=== PATIENT | female | born 1990 | race Caucasian/White ===

== ENCOUNTER 2016-10-27 16:57 | Emergency (ER) | payer OTHER ==
--- NOTE | 2016-10-27 17:41 | ED CLINICAL REPORT ---
Clinical Report - Physicians/Mid Levels [facility] [address] [place] [address] 10/27/2016 16:59 Patient: HELEN CHAPPELL Time Seen: 17:26; initial patient contact, initial documentation, patient care assumed. Arrived- By private vehicle. Historian- patient. HISTORY OF PRESENT ILLNESS Chief Complaint: EARACHE. This started yesterday and is now gone. Modifying factors- worsened by swallowing. Not relieved by anything. Location- right ear. The pain is described as mild. The patient has had ear pain. No ear drainage, complaint of foreign body in the ear, ear trauma or recent barotrauma. She has had nasal congestion and a nasal discharge and sore throat. (states yesterday her face was red and peeling, her eyes were red and watery like she had been crying, her throat hurts and hurts to swallow, and when she swallows the pain shoots into her R ear). Similar symptoms previously: None. Recent medical care: Not recently seen/assessed. REVIEW OF SYSTEMS No fever, cough, difficulty breathing or headache. She has had mild eye discomfort involving the right eye and left eye with red eye. red itchy eyes, rash on face. All systems otherwise negative, except as recorded above. PAST HISTORY Negative. See nurses notes. ADDITIONAL SURGERIES: . --17:14 Keily Christianson. SOCIAL HISTORY Never smoker. Not exposed to second-hand smoke at home. No alcohol use or drug use. No recent travel. Is a local resident. FAMILY HISTORY Negative. ADDITIONAL NOTES The nursing notes have been reviewed with agreement regarding the chief complaint, HPI, ROS, PMH and patient medications and allergies. PHYSICAL EXAM Vital Signs: 10/27/2016 17:15 BP: 115/62. HR: 77. RR: 17. O2 saturation: 100%. Temp: 98.7 F. Have been reviewed as normal and appear to be correct. Appearance: Alert. No acute distress. Eyes: Eyes normal inspection. Throat: Pharynx normal. Nose: Nose normal. Ear (right): Right ear normal. Right tympanic membrane normal. Ear (left): Left ear normal. Left tympanic membrane normal. Neck: Normal inspection. Neck supple. Respiratory: No respiratory distress. Back: Normal inspection. Skin: Skin warm and dry. Normal skin color. No rash. Normal skin turgor. Extremities: Extremities exhibit normal ROM. No lower extremity edema. Neuro: Oriented X 3. No motor deficit. No sensory deficit. PROGRESS AND PROCEDURES Course of Care: tv on super loud, child on phone/tablet with movie, other family member talking on phone, another kid jumping around room, difficult to assess pt and hear what she was saying. Patient counseled in person regarding the patient's stable condition and diagnosis. Differential Diagnosis: Other possible considerations: aoe, aom, pharyngitis, sinusitis, conjunctivitis, flu, allergies. Above considerations are based on history and physical exam. Differential diagnosis was discussed with patient. Disposition: Discharged home in good and unchanged condition (17:40). Condition: good and stable. CLINICAL IMPRESSION Acute seasonal allergic rhinitis. INSTRUCTIONS Warnings: GENERAL WARNINGS: Return or contact your physician immediately if your condition worsens or changes unexpectedly, if not improving as expected, or if other problems arise. Specifically return if problem worsens. Prescription Medications: Chantelle 180 mg tablets: take 1 orally daily as needed for allergies, congestion or itching. Dispense twenty (20). No refills. Follow-up: Follow up with your doctor in about three days as needed. Call for an appointment. Summary of care provided to patient. Understanding of the discharge instructions verbalized by patient. (Electronically signed by Carla Ashby A.R.N.P. 10/27/2016 18:09)
--- NOTE | 2016-10-27 17:41 | ED NURSING NOTES ---
Clinical Report - Nurses [facility] [address] [place] [address] 10/27/2016 16:59 [id number] TRI[facility] Triage time 17:12 Oct 27 2016. Acuity: LEVEL 5. Chief Complaint: RIGHT EAR PAIN. 17:15 10/27/16. Alert. No acute distress. SEPSIS SCREEN: Sepsis Screen. Negative (no infection suspected/documented). RAMESH COMA SCORE: [place] Coma Scale: 15- eyes open spontaneously (4); best verbal response- oriented x 4 (5); best motor response- obeys commands (6). --17:15 Keily Christianson 17:15 10/27/16. BP: 115/62. HR: 77. RR: 17. O2 saturation: 100%. Temp: 98.7 F. Pain level now 10/10. --17:15 Keily Christianson. Weight: 56.6 kg stated. Height/Length: 62 inches Per Patient. BMI: 22.8. --17:15 Keily Christianson. Medications None. --17:14 Keily Christianson. Medication/allergy information source: the patient. --17:15 Keily Christianson. Allergies None. --17:14 Keily Christianson. History Arrived by private vehicle. Historian: patient. Accompanied by family. Primary physician ([facility]). This started yesterday. ( Pt reports pain and itching in her right ear. Also reports itchy red eyes and stinging rash on face.). She has had a nasal discharge and a sore throat. No fever, ear drainage, sinus pain or headache. Treatment COST ESTIMATING CLERK: None. PAST MEDICAL HX: Immunizations: up-to-date. SOCIAL HX: Never smoker. No alcohol use or drug use. FALL RISK ASSESSMENT: Fall risk assessment completed. No fall risk identified. NUTRITIONAL RISK ASSESSMENT: The nutritional risk assessment revealed no deficiencies. FUNCTIONAL ASSESSMENT: Functional assessment: no impairments noted. LEARNING NEEDS ASSESSMENT: The learning needs assessment revealed no barriers. SKIN INTEGRITY ASSESSMENT: Skin integrity risk assessment completed. No skin integrity risk identified. --17:15 Keily Christianson. ADDITIONAL SURGERIES: . --17:14 Keily Christianson. Assessment The patient states feels the same. --17:15 Keily Christianson. Interventions ID band on patient. --17:15 Keily Christianson. PHYSICAL ASSESSMENT 17:16 10/27/16. Ambulatory to room. GENERAL / NEURO / PSYCH: Alert. Appears in no acute distress. HEENT: No facial asymmetry noted. Pupils equal, round and reactive to light. RESPIRATORY: Respirations not labored. CVS: Capillary refill less than 2 seconds. SKIN: Skin is warm and dry. --17:16 Keily Christianson. NURSING PROGRESS NOTES 17:16 10/27/16. The plan of care for this patient has been created. Head of bed elevated. Reassurance given. Two patient identifiers checked. Call light placed in reach. Side rails up x 1. Bed placed in lowest position. Brakes of bed on. Patient ready for evaluation- chart flagged and ED physician and QUARTER FOLDER notified. --17:16 Keily Christianson 17:17 10/27/16. ( Pt is ). --17:17 Keily Christianson. DISPOSITION / DISCHARGE 17:53 10/27/16. Departure time: 17:53 Oct 27 2016. Condition at departure: unchanged. The goals identified in the patient's plan of care were met. No learning barriers present. Discharge instructions provided and reviewed with the patient. Reviewed warnings (Patient verbalized awareness of warning s/sx listed in dc paperwork.). Reviewed medication(s) side effects, precautions, dosing and course information. Prescription(s) given to the patient (Chantelle). Treatments reviewed. Reviewed referral to a primary care physician for followup. Patient verbalized understanding. Written instructions provided in Swedish. The patient was discharged by the nurse practitioner. She was discharged home and accompanied by family. She left the Emergency Department ambulatory and via private vehicle. Family member driving. FALL RISK ASSESSMENT: Fall risk assessment completed. No fall risk identified. --17:53 Keily Christianson 17:52 10/27/16. BP: deferred. HR: deferred. RR: deferred. O2 saturation: deferred. Temp: deferred. Pain level now deferred. --17:53 Keily Christianson. Locked/Released at 10/27/2016 18:21 by Keiyl Christianson,
--- NOTE | 2016-10-27 17:41 | ED NURSING NOTES ---
Clinical Report - Nurses [facility] [address] [place] [address] 10/27/2016 16:59 [id number] Triage time 17:12 Oct 27 2016. Acuity: LEVEL 5. Chief Complaint: RIGHT EAR PAIN. 17:15 10/27/16. Alert. No acute distress. SEPSIS SCREEN: Sepsis Screen. Negative (no infection suspected/documented). RAMESH COMA SCORE: [place] Coma Scale: 15- eyes open spontaneously (4); best verbal response- oriented x 4 (5); best motor response- obeys commands (6). --17:15 Keily Christianson 17:15 10/27/16. BP: 115/62. HR: 77. RR: 17. O2 saturation: 100%. Temp: 98.7 F. Pain level now 10/10. --17:15 Keily Christianson. Weight: 56.6 kg stated. Height/Length: 62 inches Per Patient. BMI: 22.8. --17:15 Keily Christianson. Medications None. --17:14 Keily Christianson. Medication/allergy information source: the patient. --17:15 Keily Christianson. Allergies None. --17:14 Keily Christianson. History Arrived by private vehicle. Historian: patient. Accompanied by family. Primary physician ([facility]). This started yesterday. ( Pt reports pain and itching in her right ear. Also reports itchy red eyes and stinging rash on face.). She has had a nasal discharge and a sore throat. No fever, ear drainage, sinus pain or headache. Treatment PLANNER CHIEF: None. PAST MEDICAL HX: Immunizations: up-to-date. SOCIAL HX: Never smoker. No alcohol use or drug use. FALL RISK ASSESSMENT: Fall risk assessment completed. No fall risk identified. NUTRITIONAL RISK ASSESSMENT: The nutritional risk assessment revealed no deficiencies. FUNCTIONAL ASSESSMENT: Functional assessment: no impairments noted. LEARNING NEEDS ASSESSMENT: The learning needs assessment revealed no barriers. SKIN INTEGRITY ASSESSMENT: Skin integrity risk assessment completed. No skin integrity risk identified. --17:15 Keily Christianson. ADDITIONAL SURGERIES: . --17:14 Keily Christianson. Assessment The patient states feels the same. --17:15 Keily Christianson. Interventions ID band on patient. --17:15 Keily Christianson. PHYSICAL ASSESSMENT 17:16 10/27/16. Ambulatory to room. GENERAL / NEURO / PSYCH: Alert. Appears in no acute distress. HEENT: No facial asymmetry noted. Pupils equal, round and reactive to light. RESPIRATORY: Respirations not labored. CVS: Capillary refill less than 2 seconds. SKIN: Skin is warm and dry. --17:16 Keily Christianson. NURSING PROGRESS NOTES 17:16 10/27/16. The plan of care for this patient has been created. Head of bed elevated. Reassurance given. Two patient identifiers checked. Call light placed in reach. Side rails up x 1. Bed placed in lowest position. Brakes of bed on. Patient ready for evaluation- chart flagged and ED physician and COMMERCIAL FISHER notified. --17:16 Keily Christianson 17:17 10/27/16. ( Pt is ). --17:17 Keily Christianson. DISPOSITION / DISCHARGE 17:53 10/27/16. Departure time: 17:53 Oct 27 2016. Condition at departure: unchanged. The goals identified in the patient's plan of care were met. No learning barriers present. Discharge instructions provided and reviewed with the patient. Reviewed warnings (Patient verbalized awareness of warning s/sx listed in dc paperwork.). Reviewed medication(s) side effects, precautions, dosing and course information. Prescription(s) given to the patient (Chantelle). Treatments reviewed. Reviewed referral to a primary care physician for followup. Patient verbalized understanding. Written instructions provided in Estonian. The patient was discharged by the nurse practitioner. She was discharged home and accompanied by family. She left the Emergency Department ambulatory and via private vehicle. Family member driving. FALL RISK ASSESSMENT: Fall risk assessment completed. No fall risk identified. --17:53 Keily Christianson 17:52 10/27/16. BP: deferred. HR: deferred. RR: deferred. O2 saturation: deferred. Temp: deferred. Pain level now deferred. --17:53 Keily Christianson. Locked/Released at 10/27/2016 18:21 by Keily Christianson,
--- NOTE | 2016-10-27 18:21 | ED DISCHARGE INSTRUCTIONS ---
Patient: HELEN CHAPPELL General Instructions [facility] VisitID: [id number] [place] [address] 26y, F Registration Date/Time: 10/27/2016 Acute seasonal allergic rhinitis. INSTRUCTIONS Warnings: GENERAL WARNINGS: Return or contact your physician immediately if your condition worsens or changes unexpectedly, if not improving as expected, or if other problems arise. Specifically return if problem worsens. Prescription Medications: Chantelle 180 mg tablets: take 1 orally daily as needed for allergies, congestion or itching. Dispense twenty (20). No refills. Follow-up: Follow up with your doctor in about three days as needed. Call for an appointment. Summary of care provided to patient. Understanding of the discharge instructions verbalized by patient. ADDITIONAL INFORMATION Nasal Allergy Nasal Allergy, also called Allergic Rhinitis occurs after exposure to pollen, molds, mildew, animal dander (scales from animal skin, hair and feathers), dust, smoke and fumes. (These are called allergens). When pollen causes a nasal allergy it is commonly called Hay Fever. When these particles contact the lining of the nose, eyes, eyelids, sinuses or throat, they cause the cells to release a chemical called histamine. Histamine may cause a watery discharge from the eyes or nose. It may also cause violent sneezing, nasal congestion, itching of the eyes, nose, throat and mouth. Prevention: Nasal allergy cannot be cured but symptoms can be reduced. Avoid or reduce exposure to the allergen when possible, by the following measures: POLLEN Stay indoors on hot windy days during pollen season Keep windows and doors closed Use an air conditioner with an electrostatic filter DUST, MOLD & MILDEW Follow these measures, especially in the bedroom: When cleaning use vacuum information services consultant, oiled mops and damp cloths; dont stir up the dust. Once a week clean the oneil, woodwork and floors with a damp mop and vacuum carpets. Once a year clean the bed frame and springs (do this outside). Cover the box springs with plastic. Do not use mattress pads. Remove stuffed chairs and rugs from the bedroom. Discard old moldy books, furniture and bedding. Use synthetic fabrics for furniture, curtains and bedding. Avoid quilts, comforters, and stuffed toys. ANIMAL DANDER Remove all indoor pets (except fish and reptiles). Avoid all contact with furry animals. Avoid down-stuffed pillows and coats. Some persons are also sensitive to wool and should avoid it. OTHER IRRITANTS Do not smoke and avoid the smoke of others. Some persons are sensitive to cosmetic powder, baby powder and powdered laundry detergents. Therefore, these powders should be avoided. Home Care: DECONGESTANT pills and sprays (Sudafed, NeoSynephrine, Afrin), reduce tissue swelling and watery discharge. Overuse of nasal decongestant sprays may make symptoms worse. Do not use these more often than recommended. ANTIHISTAMINES block the release of histamine during the allergic response. Antihistamines are more effective when taken BEFORE symptoms develop. Unless a prescription antihistamine was prescribed, you may take CLARITIN (loratadine). (Claritin is an axvs-exf-rxnwxkx antihistamine that does not cause drowsiness.) STEROID nasal sprays (Beconase, Vancenase, Nasalide) or oral steroids (Prednisone) may also be prescribed for more severe symptoms. These help to reduce the local inflammation which adds to the allergic response. If you have ASTHMA, pollen season may make your asthma symptoms worse. It is important that you use your asthma medicines as directed during this time to prevent or treat attacks. Some persons with asthma have a worsening of their asthma symptoms when taking antihistamines. If you notice this, stop the antihistamines and notify your doctor. Follow Up with your doctor or as directed by our staff if your symptoms are not improving with the treatment advised. Get Prompt Medical Attention if any of the following occur: Facial or sinus pain or colored drainage from the nose Severe headache or ear pain Fever of 100.4F (38C) or higher, or as directed by your healthcare provider Wheezing or trouble breathing (If you already know you have asthma, return if your asthma symptoms do not respond to the usual doses of your medicine) Cough with lots of colored sputum (mucus) Seasonal Allergy Seasonal Allergy is also called Hay Fever. It may occur after a person is exposed to pollens released from grasses, weeds, trees and shrubs. This type of allergy occurs during the spring and summer when the pollen contacts the lining of the nose, eyes, eyelids, sinuses and throat. This causes discharge from the eyes or nose. Violent sneezing, nasal congestion, post-nasal drip, itching of the eyes, nose, throat and mouth, scratchy throat, and dry cough may also occur. Home Care: Seasonal allergy cannot be cured, but symptoms can be reduced by these measures: Avoid or reduce exposure to the allergen as much as you can: Stay indoors on hot windy days of pollen season. Keep windows and doors closed. Use an air conditioner with an electrostatic filter. DECONGESTANT pills and sprays (Sudafed, NeoSynephrine, Afrin) reduce tissue swelling and watery discharge. If you use the sprays too much, the symptoms may get worse. Do not use these more often than recommended. Do not use decongestants in children unless advised by your doctor. ANTIHISTAMINES block the release of histamine during the allergic response. They work better when taken BEFORE symptoms develop. Unless a prescription antihistamine was prescribed, you may take Claritin (loratadine). This is an rcpg-mpw-vdtcchm non-sedating antihistamine. It does not make you drowsy. STEROID nasal sprays (Beconase, Vancenase, Nasalide) or oral steroids (Prednisone) may also be prescribed. These help to reduce the local inflammation that adds to the allergic response. If you have ASTHMA, pollen season may make your asthma symptoms worse. It is important that you use your asthma medicines as directed during this time to prevent or treat attacks. Some persons with ASTHMA have asthma symptoms that get worse when they take ANTIHISTAMINES. This is due to the drying effect on the lungs. If you notice this, stop the antihistamines, drink extra fluids and notify your doctor. If you have sinus congestion or drainage, a saline nasal rinse may give relief. A saline nasal rinse lessens the swelling and clears excess mucus. This allows sinuses to drain. Prepackaged kits are sold at most drug stores. These contain pre-mixed salt packets and an irrigation device. Follow Up with your doctor or as directed by our staff if your symptoms do not improve with the treatment advised. Get Prompt Medical Attention if any of the following occur: Facial, ear or sinus pain; colored drainage from the nose Severe headache Fever of 100.4F (38C) or higher, or as directed by your healthcare provider Wheezing or trouble breathing (If you know you have asthma, return if your asthma symptoms do not respond to the usual doses of your medicine) Cough with lots of colored sputum (mucus) Fexofenadine Hydrochloride Oral tablet What is this medicine? FEXOFENADINE (fex oh STEVO a khloe) is an antihistamine. This medicine is used to treat or prevent symptoms of allergies. It is also used to help reduce itchy skin rash and hives. How should I use this medicine? Take this medicine by mouth with a full glass of water. Follow the directions on the prescription label. You may take this medicine with food or on an empty stomach. Take your medicine at regular intervals. Do not take it more often than directed. You may need to take this medicine for several days before your symptoms improve. Talk to your supervisor in charge regarding the use of this medicine in children. While this drug may be prescribed for children as young as 6 years old for selected conditions, precautions do apply. What side effects may I notice from receiving this medicine? Side effects that you should report to your doctor or health career technical counselor as soon as possible: allergic reactions like skin rash, itching or hives, swelling of the face, lips, or tongue breathing problems chest pain fast heartbeat infection or fever Side effects that usually do not require medical attention (report to your doctor or health career technical counselor if they continue or are bothersome): cough drowsiness dry or irritated nose, mouth, or throat headache menstrual changes pain stomach upset, nausea What may interact with this medicine? antacids erythromycin grapefruit, apple, or orange juice ketoconazole magnesium-containing products What if I miss a dose? If you miss a dose, take it as soon as you can. If it is almost time for your next dose, take only that dose. Do not take double or extra doses. Where should I keep my medicine? Keep out of the reach of children. Store at room temperature between 20 and 25 degrees C (68 and 77degrees F). Protect from moisture. Throw away any unused medicine after the expiration date. What should I tell my health care provider before I take this medicine? They need to know if you have any of these conditions: kidney disease an unusual or allergic reaction to fexofenadine, terfenadine, other medicines, foods, dyes, or preservatives or trying to get breast-feeding What should I watch for while using this medicine? Visit your doctor or health career technical counselor for regular checks on your health. Tell your doctor or healthcare professional if your symptoms do not start to get better or if they get worse. You have been given the following additional information: Allergic Rhinitis Seasonal Allergy Fexofenadine Hydrochloride Oral tablet (Electronically signed by Carla Ashby A.R.N.P. 10/27/2016 18:09)
--- NOTE | 2016-10-27 18:21 | ED MED RECONCILIATION SUMMARY ---
Patient: EHLEN CHAPPELL Medication Reconciliation Report [facility] VisitID: [id number] [address] [place] [address] 26y, F Registration Date/Time: 10/27/2016 Weight: 56.6 kg Height/Length: 62 in. BMI: 22.8 ALLERGIES: None The patient's Home Medications are listed below: NONE. The source(s) of the original Home Medication information: patient The following Medications were given to the patient in the Emergency Department: None. The following Medications were prescribed to the patient: Chantelle 180 mg tablets: take 1 orally daily as needed for allergies, congestion or itching. Dispense twenty (20). No refills. -- Carla Ashby A.R.N.P.
--- NOTE | 2016-10-27 18:21 | ED MAR SUMMARY ---
..... Medication Administration Record [facility] [address] [place], [place] [id number] Patient: HELEN CHAPPELL Visit ID: [id number] 26y, F Weight: 56.6 kg Height/Length: 62 in BMI: 22.8 ALLERGIES: None
--- NOTE | 2016-10-27 18:21 | ED DISCHARGE INSTRUCTIONS ---
Patient: HELEN CHAPPELL General Instructions [facility] VisitID: [id number] [place] [address] 26y, F Registration Date/Time: 10/27/2016 Acute seasonal allergic rhinitis. INSTRUCTIONS Warnings: GENERAL WARNINGS: Return or contact your physician immediately if your condition worsens or changes unexpectedly, if not improving as expected, or if other problems arise. Specifically return if problem worsens. Prescription Medications: Chantelle 180 mg tablets: take 1 orally daily as needed for allergies, congestion or itching. Dispense twenty (20). No refills. Follow-up: Follow up with your doctor in about three days as needed. Call for an appointment. Summary of care provided to patient. Understanding of the discharge instructions verbalized by patient. ADDITIONAL INFORMATION Nasal Allergy Nasal Allergy, also called Allergic Rhinitis occurs after exposure to pollen, molds, mildew, animal dander (scales from animal skin, hair and feathers), dust, smoke and fumes. (These are called allergens). When pollen causes a nasal allergy it is commonly called Hay Fever. When these particles contact the lining of the nose, eyes, eyelids, sinuses or throat, they cause the cells to release a chemical called histamine. Histamine may cause a watery discharge from the eyes or nose. It may also cause violent sneezing, nasal congestion, itching of the eyes, nose, throat and mouth. Prevention: Nasal allergy cannot be cured but symptoms can be reduced. Avoid or reduce exposure to the allergen when possible, by the following measures: POLLEN Stay indoors on hot windy days during pollen season Keep windows and doors closed Use an air conditioner with an electrostatic filter DUST, MOLD & MILDEW Follow these measures, especially in the bedroom: When cleaning use vacuum fishing accessories maker, oiled mops and damp cloths; dont stir up the dust. Once a week clean the oneil, woodwork and floors with a damp mop and vacuum carpets. Once a year clean the bed frame and springs (do this outside). Cover the box springs with plastic. Do not use mattress pads. Remove stuffed chairs and rugs from the bedroom. Discard old moldy books, furniture and bedding. Use synthetic fabrics for furniture, curtains and bedding. Avoid quilts, comforters, and stuffed toys. ANIMAL DANDER Remove all indoor pets (except fish and reptiles). Avoid all contact with furry animals. Avoid down-stuffed pillows and coats. Some persons are also sensitive to wool and should avoid it. OTHER IRRITANTS Do not smoke and avoid the smoke of others. Some persons are sensitive to cosmetic powder, baby powder and powdered laundry detergents. Therefore, these powders should be avoided. Home Care: DECONGESTANT pills and sprays (Sudafed, NeoSynephrine, Afrin), reduce tissue swelling and watery discharge. Overuse of nasal decongestant sprays may make symptoms worse. Do not use these more often than recommended. ANTIHISTAMINES block the release of histamine during the allergic response. Antihistamines are more effective when taken BEFORE symptoms develop. Unless a prescription antihistamine was prescribed, you may take CLARITIN (loratadine). (Claritin is an lkji-tli-dfxjcth antihistamine that does not cause drowsiness.) STEROID nasal sprays (Beconase, Vancenase, Nasalide) or oral steroids (Prednisone) may also be prescribed for more severe symptoms. These help to reduce the local inflammation which adds to the allergic response. If you have ASTHMA, pollen season may make your asthma symptoms worse. It is important that you use your asthma medicines as directed during this time to prevent or treat attacks. Some persons with asthma have a worsening of their asthma symptoms when taking antihistamines. If you notice this, stop the antihistamines and notify your doctor. Follow Up with your doctor or as directed by our staff if your symptoms are not improving with the treatment advised. Get Prompt Medical Attention if any of the following occur: Facial or sinus pain or colored drainage from the nose Severe headache or ear pain Fever of 100.4F (38C) or higher, or as directed by your healthcare provider Wheezing or trouble breathing (If you already know you have asthma, return if your asthma symptoms do not respond to the usual doses of your medicine) Cough with lots of colored sputum (mucus) Seasonal Allergy Seasonal Allergy is also called Hay Fever. It may occur after a person is exposed to pollens released from grasses, weeds, trees and shrubs. This type of allergy occurs during the spring and summer when the pollen contacts the lining of the nose, eyes, eyelids, sinuses and throat. This causes discharge from the eyes or nose. Violent sneezing, nasal congestion, post-nasal drip, itching of the eyes, nose, throat and mouth, scratchy throat, and dry cough may also occur. Home Care: Seasonal allergy cannot be cured, but symptoms can be reduced by these measures: Avoid or reduce exposure to the allergen as much as you can: Stay indoors on hot windy days of pollen season. Keep windows and doors closed. Use an air conditioner with an electrostatic filter. DECONGESTANT pills and sprays (Sudafed, NeoSynephrine, Afrin) reduce tissue swelling and watery discharge. If you use the sprays too much, the symptoms may get worse. Do not use these more often than recommended. Do not use decongestants in children unless advised by your doctor. ANTIHISTAMINES block the release of histamine during the allergic response. They work better when taken BEFORE symptoms develop. Unless a prescription antihistamine was prescribed, you may take Claritin (loratadine). This is an itlo-wta-jghprdw non-sedating antihistamine. It does not make you drowsy. STEROID nasal sprays (Beconase, Vancenase, Nasalide) or oral steroids (Prednisone) may also be prescribed. These help to reduce the local inflammation that adds to the allergic response. If you have ASTHMA, pollen season may make your asthma symptoms worse. It is important that you use your asthma medicines as directed during this time to prevent or treat attacks. Some persons with ASTHMA have asthma symptoms that get worse when they take ANTIHISTAMINES. This is due to the drying effect on the lungs. If you notice this, stop the antihistamines, drink extra fluids and notify your doctor. If you have sinus congestion or drainage, a saline nasal rinse may give relief. A saline nasal rinse lessens the swelling and clears excess mucus. This allows sinuses to drain. Prepackaged kits are sold at most drug stores. These contain pre-mixed salt packets and an irrigation device. Follow Up with your doctor or as directed by our staff if your symptoms do not improve with the treatment advised. Get Prompt Medical Attention if any of the following occur: Facial, ear or sinus pain; colored drainage from the nose Severe headache Fever of 100.4F (38C) or higher, or as directed by your healthcare provider Wheezing or trouble breathing (If you know you have asthma, return if your asthma symptoms do not respond to the usual doses of your medicine) Cough with lots of colored sputum (mucus) Fexofenadine Hydrochloride Oral tablet What is this medicine? FEXOFENADINE (fex oh STEVO a khloe) is an antihistamine. This medicine is used to treat or prevent symptoms of allergies. It is also used to help reduce itchy skin rash and hives. How should I use this medicine? Take this medicine by mouth with a full glass of water. Follow the directions on the prescription label. You may take this medicine with food or on an empty stomach. Take your medicine at regular intervals. Do not take it more often than directed. You may need to take this medicine for several days before your symptoms improve. Talk to your key account executive regarding the use of this medicine in children. While this drug may be prescribed for children as young as 6 years old for selected conditions, precautions do apply. What side effects may I notice from receiving this medicine? Side effects that you should report to your doctor or health career and transition teacher as soon as possible: allergic reactions like skin rash, itching or hives, swelling of the face, lips, or tongue breathing problems chest pain fast heartbeat infection or fever Side effects that usually do not require medical attention (report to your doctor or health career and transition teacher if they continue or are bothersome): cough drowsiness dry or irritated nose, mouth, or throat headache menstrual changes pain stomach upset, nausea What may interact with this medicine? antacids erythromycin grapefruit, apple, or orange juice ketoconazole magnesium-containing products What if I miss a dose? If you miss a dose, take it as soon as you can. If it is almost time for your next dose, take only that dose. Do not take double or extra doses. Where should I keep my medicine? Keep out of the reach of children. Store at room temperature between 20 and 25 degrees C (68 and 77degrees F). Protect from moisture. Throw away any unused medicine after the expiration date. What should I tell my health care provider before I take this medicine? They need to know if you have any of these conditions: kidney disease an unusual or allergic reaction to fexofenadine, terfenadine, other medicines, foods, dyes, or preservatives or trying to get breast-feeding What should I watch for while using this medicine? Visit your doctor or health career and transition teacher for regular checks on your health. Tell your doctor or healthcare professional if your symptoms do not start to get better or if they get worse. You have been given the following additional information: Allergic Rhinitis Seasonal Allergy Fexofenadine Hydrochloride Oral tablet (Electronically signed by Carla Ashby A.R.N.P. 10/27/2016 18:09)
--- NOTE | 2016-10-27 18:21 | ED MAR SUMMARY ---
..... Medication Administration Record [facility] [address] [place], [place] [id number] Patient: HELEN CHAPPELL Visit ID: [id number] 26y, F Weight: 56.6 kg Height/Length: 62 in BMI: 22.8 ALLERGIES: None
--- NOTE | 2016-10-27 18:21 | ED MED RECONCILIATION SUMMARY ---
Patient: HELEN CHAPPELL Medication Reconciliation Report [facility] VisitID: [id number] [address] [place] [address] 26y, F Registration Date/Time: 10/27/2016 Weight: 56.6 kg Height/Length: 62 in. BMI: 22.8 ALLERGIES: None The patient's Home Medications are listed below: NONE. The source(s) of the original Home Medication information: patient The following Medications were given to the patient in the Emergency Department: None. The following Medications were prescribed to the patient: Chantelle 180 mg tablets: take 1 orally daily as needed for allergies, congestion or itching. Dispense twenty (20). No refills. -- Carla Ashby A.R.N.P.
== END 2016-10-27 17:53 | disposition home or self-care (01) ==
LOC: ED SRH 16:57
DX: J30.2 Other seasonal allergic rhinitis (principal)

== ENCOUNTER 2016-11-09 13:34 | Emergency (ER) | payer OTHER ==
--- NOTE | 2016-11-09 15:49 | ED ORDER SUMMARY ---
..... Patient: HELEN CHAPPELL OrderSheet [facility] VisitID: [id number] [place] [address] 26y, F Registration Date/Time: 11/09/2016 ORDER SHEET Weight: 55.7 kg (stated) Allergies: None GENERAL ORDERS: EKG - ER Stat (14:04 11/09/2016 HBivens A.R.N.P.) (Ack 14:06 LNations ER Tech1) (14:12 KPage-Kuchan R.N.) Visual Acuity (14:06 11/09/2016 HBivens A.R.N.P.) (Ack 14:38 LAbe R.N.) (15:10 LAbe R.N.) MEDICATION ORDERS: Proparacaine Eye Drops (Solution 0.5 %) 2 drops (both eyes) (14:57 11/09/2016 HBivens A.R.N.P.) (Ack 14:57 LAbe R.N.) (15:10 LAbe R.N.) IV FLUIDS: ORDER SHEET NOTES: [Electronically signed by Carla Ashby.R.N.PPooja (17:11 11/09/2016)] [Electronically signed by Suzette Mckenzie R.N. (19:13 11/09/2016)] [Electronically locked/signed by Suzette Mckenzie R.N. (19:13 11/09/2016)]
--- NOTE | 2016-11-09 15:49 | ED NURSING NOTES ---
Clinical Report - Nurses [facility] [address] [place] [address] 11/09/2016 13:36 [id number] Triage time 13:43. Acuity: LEVEL 4. Chief Complaint: REDNESS and PAIN TO RIGHT EYE. REDNESS and PAIN TO LEFT EYE. Alert. No acute distress. --13:52 Suzette Mckenzie R.N. 13:43 11/09/16. BP: 105/68. HR: 84. RR: 18. O2 saturation: 99%. Temp: 98.4 F. Pain level now 02/28. --13:52 Suzette Mckenzie R.N. VISUAL ACUITY: Visual acuity performed without corrective lenses: left eye 20/70; right eye 20/50; both eyes 20/30. --15:09 Suzette Mckenzie R.N. Weight: 55.7 kg stated. Height/Length: 62 inches Per Patient. BMI: 22.5. --13:52 Suzette Mckenzie R.N. Medications Fexofenadine HCl Oral. --13:49 Suzette Mckenzie R.N. Allergies None. --13:49 Suzette Mckenzie R.N. History Arrived by private vehicle. Historian: patient. Accompanied by family. Primary physician ([facility]). Onset. (2 weeks). She did not sustain an injury. ( seasonal allergies, seen here before for same and not getting relief. Now states has chest pressure off and on since 2013). 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 PAST MEDICAL HX: The patient does not wear contact lenses. Immunizations: up-to-date. Last normal menstrual period- October 15. SOCIAL HX: Never smoker. No alcohol use or drug use. No infectious disease exposure. ABUSE ASSESSMENT: No report of abuse. SELF HARM ASSESSMENT: A self harm assessment was performed. The patient answered "no" to the question "Do you have thoughts of harming or killing yourself?" and "Are you here because you tried to hurt yourself?". FALL RISK ASSESSMENT: Fall risk assessment completed. No fall risk identified. NUTRITIONAL RISK ASSESSMENT: The nutritional risk assessment revealed no deficiencies. FUNCTIONAL ASSESSMENT: Functional assessment: no impairments noted. LEARNING NEEDS ASSESSMENT: The learning needs assessment revealed no barriers. SKIN INTEGRITY ASSESSMENT: Skin integrity risk assessment completed. No skin integrity risk identified. --13:52 Suzette Mckenzie R.N. PROBLEMS: Allergic Rhinitis. --13:50 Suzette Mckenzie R.N. Interventions ID band on patient. To treatment room. --13:52 Suzette Mckenzie R.N. PHYSICAL ASSESSMENT Ambulatory to room. HEENT: Conjunctival findings present: redness of the right conjunctiva and redness of the left conjunctiva. --13:52 Suzette Mckenzie R.N. NURSING PROGRESS NOTES Head of bed elevated. Two patient identifiers checked. Call light placed in reach. Side rails up x 1. Bed placed in lowest position. Brakes of bed on. ED physician notified. --13:53 Suzette Mckenzie R.N. ( EKG 1412). --14:13 Abril Meraz R.N. Cardiac rhythm: (SR). --14:13 Abril Meraz R.N. 15:10 11/09/2016 Proparacaine Eye Drops 2 drop given. Given in both eyes. Allergies verified and confirmed 5 rights. --15:10 Suzette Mckenzie R.N. 15:17. Reassessment after medication administered. She reports no complaints and she is calm. Overall patient status is improved- she states feels better. GENERAL / NEURO / PSYCH: Oriented X 4. RESPIRATORY: No respiratory distress. SKIN: Skin color within normal limits. Skin is warm and dry. --15:38 Suzette Mckenzie R.N. 15:17 11/09/16. BP: 107/59. HR: 69. RR: 18. O2 saturation: 97%. Temp: 98.2 F. --15:38 Suzette Mckenzie R.N. DISPOSITION / DISCHARGE 15:30. Departure time: 1530. Condition at departure: improved. No learning barriers present. Discharge instructions provided and reviewed with the patient. Patient verbalized understanding. Written instructions provided in Moroccan. The patient was discharged home. She left the Emergency Department ambulatory and via private vehicle. Parent driving. --15:40 Suzette Mckenzie R.N. Locked/Released at 11/09/2016 19:13 by Suzette Mckenzie R.N.
--- NOTE | 2016-11-09 15:49 | ED CLINICAL REPORT ---
Clinical Report - Physicians/Mid Levels [facility] [address] [place] [address] 11/09/2016 13:36 Patient: HELEN CHAPPELL Time Seen: 1353; initial patient contact, initial documentation, patient care assumed. Arrived- By private vehicle. Historian- patient. HISTORY OF PRESENT ILLNESS Chief Complaint: EYE REDNESS and IRRITATION. This started about 2 weeks ago, involves the right and left eye, is characterized as moderate in severity and has been constant and is still present. The patient did not sustain an injury. Not injured from contact lenses. Eye redness and itching. ( watery). Similar symptoms previously: Seen in the ED. Evaluation/treatment: medication prescribed. ( txed here on 10/27 for eye irritation, rx beau, no f/u and no better). REVIEW OF SYSTEMS The patient complains of moderate, squeezing central chest pain (for 3 years, wants that checked too), currently mild. All systems otherwise negative, except as recorded above. PAST HISTORY See nurses notes. PROBLEMS: Allergic Rhinitis. --13:50 Suzette Mckenzie R.N. No history of prior eye injury. She does not wear contact lenses. SOCIAL HISTORY Never smoker. No alcohol use or drug use. FAMILY HISTORY No significant family medical history. ADDITIONAL NOTES The nursing notes have been reviewed with agreement regarding the chief complaint, HPI, ROS, PMH and patient medications and allergies. PHYSICAL EXAM Vital Signs: 11/09/2016 13:43 BP: 105/68. HR: 84. RR: 18. O2 saturation: 99%. Temp: 98.4 F. Have been reviewed as normal and appear to be correct. Appearance: Alert. Oriented X3. No acute distress. HEENT: Ears normal. Nose normal. Pharynx normal. Head appears normal to external inspection. Eyes: Visual acuity noted- see nurse's notes. Eyelids appear normal to inspection. Conjunctivae and sclerae do not appear normal to inspection. Corneas appear normal to inspection. Pupils equal, round and reactive to light. Accommodation normal. Funduscopic exam normal. Visual abreu normal. EOMs intact. Periorbital areas appear normal to inspection. Anterior chambers clear. Anterior chambers of normal depth. B sclera mild erythema and tearing present, pt rubbing her eyes during entire visit. Rt Eye: Right eye exam normal. Lt Eye: Left eye exam normal. Neck: Neck supple. Normal inspection. CVS: Normal heart rate and rhythm. Heart sounds normal. Respiratory: No respiratory distress. Breath sounds normal. Skin: No rash. Extremities: Extremities negative. Neuro: Oriented X 3. Mood/affect normal. No motor deficit. No sensory deficit. LABS, X-RAYS, AND EKG EKG: EKG time: (1411). No acute process. No acute ischemia. Normal EKG. Rate: 76. Normal. The study has been interpreted contemporaneously by me (and Dr Glasgow). The EKG appears to be a good tracing. Interpretation time: 2. PROGRESS AND PROCEDURES Patient counseled in person regarding the patient's stable condition, test results and diagnosis. Differential Diagnosis: Other possible considerations: conjunctivitis, fb, corneal abrasion. Above considerations are based on history, physical exam, reassessment and EKG. Differential diagnosis was discussed with patient. Disposition: Condition: good and stable. CLINICAL IMPRESSION Acute conjunctivitis of the right eye and left eye. Chest pain characterized as "discomfort" .12 lead EKG performed. INSTRUCTIONS Warnings: GENERAL WARNINGS: Return or contact your physician immediately if your condition worsens or changes unexpectedly, if not improving as expected, or if other problems arise. Specifically return if problem worsens. Prescription Medications: Patanol Ophthalmic Solution 0.1% : Instill 1-2 drops into affected eye 2 times daily 6 to 8 hours apart as needed for itching. Dispense five (5) mL. No refills. Substitution is permissible. Understanding of the discharge instructions verbalized by patient. Follow-up with: Nisa Wisdom MD, Ophthalmology, [facility], [address] [place] [address] - [address] [address]; Bogdan Rowland MD, Ophthalmology, , [facility], [address] [place] [address]; Tani Shanks MD, Ophthalmology, , [address], [facility] [address]; Bogdan Gonzalez MD, Ophthalmology, , [address], [place], [address]; Mik Omer MD, Ophthalmology, , [address], [place], [address]; Julien Jennings MD, Ophthalmology, , [address], , [place], [address]; Linsey King MD, Ophthalmology, , [address], [place] [id number]; Bogdan Gusman MD, Ophthalmology, , [facility], [address] [place] [address] Follow up tomorrow even if well. Call for an appointment. Summary of care provided to patient. (Electronically signed by Carla Ashby A.R.N.P. 11/09/2016 17:11)
--- NOTE | 2016-11-09 15:49 | ED NURSING NOTES ---
Clinical Report - Nurses [facility] [address] [place] [address] 11/09/2016 13:36 [id number] TRI[facility] Triage time 13:43. Acuity: LEVEL 4. Chief Complaint: REDNESS and PAIN TO RIGHT EYE. REDNESS and PAIN TO LEFT EYE. Alert. No acute distress. --13:52 Suzette Mckenzie R.N. 13:43 11/09/16. BP: 105/68. HR: 84. RR: 18. O2 saturation: 99%. Temp: 98.4 F. Pain level now 02/28. --13:52 Suzette Mckenzie R.N. VISUAL ACUITY: Visual acuity performed without corrective lenses: left eye 20/70; right eye 20/50; both eyes 20/30. --15:09 Suzette Mckenzie R.N. Weight: 55.7 kg stated. Height/Length: 62 inches Per Patient. BMI: 22.5. --13:52 Suzette Mckenzie R.N. Medications Fexofenadine HCl Oral. --13:49 Suzette Mckenzie R.N. Allergies None. --13:49 Suzette Mckenzie R.N. History Arrived by private vehicle. Historian: patient. Accompanied by family. Primary physician ([facility]). Onset. (2 weeks). She did not sustain an injury. ( seasonal allergies, seen here before for same and not getting relief. Now states has chest pressure off and on since 2013). 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 PAST MEDICAL HX: The patient does not wear contact lenses. Immunizations: up-to-date. Last normal menstrual period- October 15. SOCIAL HX: Never smoker. No alcohol use or drug use. No infectious disease exposure. ABUSE ASSESSMENT: No report of abuse. SELF HARM ASSESSMENT: A self harm assessment was performed. The patient answered "no" to the question "Do you have thoughts of harming or killing yourself?" and "Are you here because you tried to hurt yourself?". FALL RISK ASSESSMENT: Fall risk assessment completed. No fall risk identified. NUTRITIONAL RISK ASSESSMENT: The nutritional risk assessment revealed no deficiencies. FUNCTIONAL ASSESSMENT: Functional assessment: no impairments noted. LEARNING NEEDS ASSESSMENT: The learning needs assessment revealed no barriers. SKIN INTEGRITY ASSESSMENT: Skin integrity risk assessment completed. No skin integrity risk identified. --13:52 Suzette Mckenzie R.N. PROBLEMS: Allergic Rhinitis. --13:50 Suzette Mckenzie R.N. Interventions ID band on patient. To treatment room. --13:52 Suzette Mckenzie R.N. PHYSICAL ASSESSMENT Ambulatory to room. HEENT: Conjunctival findings present: redness of the right conjunctiva and redness of the left conjunctiva. --13:52 Suzette Mckenzie R.N. NURSING PROGRESS NOTES Head of bed elevated. Two patient identifiers checked. Call light placed in reach. Side rails up x 1. Bed placed in lowest position. Brakes of bed on. ED physician notified. --13:53 Suzette Mckenzie R.N. ( EKG 1412). --14:13 Abril Meraz R.N. Cardiac rhythm: (SR). --14:13 Abril Meraz R.N. 15:10 11/09/2016 Proparacaine Eye Drops 2 drop given. Given in both eyes. Allergies verified and confirmed 5 rights. --15:10 Suzette Mckenzie R.N. 15:17. Reassessment after medication administered. She reports no complaints and she is calm. Overall patient status is improved- she states feels better. GENERAL / NEURO / PSYCH: Oriented X 4. RESPIRATORY: No respiratory distress. SKIN: Skin color within normal limits. Skin is warm and dry. --15:38 Suzette Mckenzie R.N. 15:17 11/09/16. BP: 107/59. HR: 69. RR: 18. O2 saturation: 97%. Temp: 98.2 F. --15:38 Suzette Mckenzie R.N. DISPOSITION / DISCHARGE 15:30. Departure time: 1530. Condition at departure: improved. No learning barriers present. Discharge instructions provided and reviewed with the patient. Patient verbalized understanding. Written instructions provided in Japanese. The patient was discharged home. She left the Emergency Department ambulatory and via private vehicle. Parent driving. --15:40 Suzette Mckenzie R.N. Locked/Released at 11/09/2016 19:13 by Suzette Mckenzie R.N.
--- NOTE | 2016-11-09 15:49 | ED ORDER SUMMARY ---
..... Patient: HELEN CHAPPELL OrderSheet [facility] VisitID: [id number] [place] [address] 26y, F Registration Date/Time: 11/09/2016 ORDER SHEET Weight: 55.7 kg (stated) Allergies: None GENERAL ORDERS: EKG - ER Stat (14:04 11/09/2016 HBivens A.R.N.P.) (Ack 14:06 LNations ER Tech1) (14:12 KPage-Kuchan R.N.) Visual Acuity (14:06 11/09/2016 HBivens A.R.N.P.) (Ack 14:38 LAbe R.N.) (15:10 LAbe R.N.) MEDICATION ORDERS: Proparacaine Eye Drops (Solution 0.5 %) 2 drops (both eyes) (14:57 11/09/2016 HBivens A.R.N.P.) (Ack 14:57 LAbe R.N.) (15:10 LAbe R.N.) IV FLUIDS: ORDER SHEET NOTES: [Electronically signed by Carla Ashby.R.N.PPooja (17:11 11/09/2016)] [Electronically signed by Suzette Mckenzie R.N. (19:13 11/09/2016)] [Electronically locked/signed by Suzette Mckenzie R.N. (19:13 11/09/2016)]
--- NOTE | 2016-11-09 15:49 | ED CLINICAL REPORT ---
Clinical Report - Physicians/Mid Levels [facility] [address] [place] [address] 11/09/2016 13:36 Patient: HELEN CHAPPELL Time Seen: 1353; initial patient contact, initial documentation, patient care assumed. Arrived- By private vehicle. Historian- patient. HISTORY OF PRESENT ILLNESS Chief Complaint: EYE REDNESS and IRRITATION. This started about 2 weeks ago, involves the right and left eye, is characterized as moderate in severity and has been constant and is still present. The patient did not sustain an injury. Not injured from contact lenses. Eye redness and itching. ( watery). Similar symptoms previously: Seen in the ED. Evaluation/treatment: medication prescribed. ( txed here on 10/27 for eye irritation, rx beau, no f/u and no better). REVIEW OF SYSTEMS The patient complains of moderate, squeezing central chest pain (for 3 years, wants that checked too), currently mild. All systems otherwise negative, except as recorded above. PAST HISTORY See nurses notes. PROBLEMS: Allergic Rhinitis. --13:50 Suzette Mckenzie R.N. No history of prior eye injury. She does not wear contact lenses. SOCIAL HISTORY Never smoker. No alcohol use or drug use. FAMILY HISTORY No significant family medical history. ADDITIONAL NOTES The nursing notes have been reviewed with agreement regarding the chief complaint, HPI, ROS, PMH and patient medications and allergies. PHYSICAL EXAM Vital Signs: 11/09/2016 13:43 BP: 105/68. HR: 84. RR: 18. O2 saturation: 99%. Temp: 98.4 F. Have been reviewed as normal and appear to be correct. Appearance: Alert. Oriented X3. No acute distress. HEENT: Ears normal. Nose normal. Pharynx normal. Head appears normal to external inspection. Eyes: Visual acuity noted- see nurse's notes. Eyelids appear normal to inspection. Conjunctivae and sclerae do not appear normal to inspection. Corneas appear normal to inspection. Pupils equal, round and reactive to light. Accommodation normal. Funduscopic exam normal. Visual abreu normal. EOMs intact. Periorbital areas appear normal to inspection. Anterior chambers clear. Anterior chambers of normal depth. B sclera mild erythema and tearing present, pt rubbing her eyes during entire visit. Rt Eye: Right eye exam normal. Lt Eye: Left eye exam normal. Neck: Neck supple. Normal inspection. CVS: Normal heart rate and rhythm. Heart sounds normal. Respiratory: No respiratory distress. Breath sounds normal. Skin: No rash. Extremities: Extremities negative. Neuro: Oriented X 3. Mood/affect normal. No motor deficit. No sensory deficit. LABS, X-RAYS, AND EKG EKG: EKG time: (1411). No acute process. No acute ischemia. Normal EKG. Rate: 76. Normal. The study has been interpreted contemporaneously by me (and Dr Glasgow). The EKG appears to be a good tracing. Interpretation time: 2. PROGRESS AND PROCEDURES Patient counseled in person regarding the patient's stable condition, test results and diagnosis. Differential Diagnosis: Other possible considerations: conjunctivitis, fb, corneal abrasion. Above considerations are based on history, physical exam, reassessment and EKG. Differential diagnosis was discussed with patient. Disposition: Condition: good and stable. CLINICAL IMPRESSION Acute conjunctivitis of the right eye and left eye. Chest pain characterized as "discomfort" .12 lead EKG performed. INSTRUCTIONS Warnings: GENERAL WARNINGS: Return or contact your physician immediately if your condition worsens or changes unexpectedly, if not improving as expected, or if other problems arise. Specifically return if problem worsens. Prescription Medications: Patanol Ophthalmic Solution 0.1% : Instill 1-2 drops into affected eye 2 times daily 6 to 8 hours apart as needed for itching. Dispense five (5) mL. No refills. Substitution is permissible. Understanding of the discharge instructions verbalized by patient. Follow-up with: Nisa Wisdom MD, Ophthalmology, [facility], [address] [place] [address] - [address] [address]; Bogdan Rowland MD, Ophthalmology, , [facility], [address] [place] [address]; Tani Shanks MD, Ophthalmology, , [address] [facility], [address], [facility] [address]; Bogdan Gonzalez MD, Ophthalmology, , [address], [place], [address]; Mik Omer MD, Ophthalmology, , [address], [place], [address]; Julien Jennings MD, Ophthalmology, , [address], , [place], [address]; Linsey King MD, Ophthalmology, , [address], [place] [id number]; Bogdan Gusman MD, Ophthalmology, , [facility], [address] [place] [address] Follow up tomorrow even if well. Call for an appointment. Summary of care provided to patient. (Electronically signed by Carla Ashby A.R.N.P. 11/09/2016 17:11)
--- NOTE | 2016-11-09 19:13 | ED DISCHARGE INSTRUCTIONS ---
Patient: HELEN CHAPPELL General Instructions [facility] VisitID: [id number] [place] [address] 26y, F Registration Date/Time: 11/09/2016 Acute conjunctivitis of the right eye and left eye. Chest pain characterized as "discomfort" .12 lead EKG performed. INSTRUCTIONS Warnings: GENERAL WARNINGS: Return or contact your physician immediately if your condition worsens or changes unexpectedly, if not improving as expected, or if other problems arise. Specifically return if problem worsens. Prescription Medications: Patanol Ophthalmic Solution 0.1% : Instill 1-2 drops into affected eye 2 times daily 6 to 8 hours apart as needed for itching. Dispense five (5) mL. No refills. Substitution is permissible. Understanding of the discharge instructions verbalized by patient. Follow-up with: Nisa Wisdom MD, Ophthalmology, [facility], [address] [place] [address] - [address], [place] [address]; Bogdan Rowland MD, Ophthalmology, , [place] [address]; Tani Shanks MD, Ophthalmology, , [address], [place] [address]; Bogdan Gonzalez MD, Ophthalmology, , [address], [place] [address]; Mik Omer MD, Ophthalmology, , [address] [address]; Julien Jennings MD, Ophthalmology, , [address], [place] [address]; Linsey King MD, Ophthalmology, , [address], [place] [address]; Bogdan Gusman MD, Ophthalmology, , [facility] [place] [address] Follow up tomorrow even if well. Call for an appointment. Summary of care provided to patient. ADDITIONAL INFORMATION Conjunctivitis, Allergic Allergic Conjunctivitis is a reaction to dust or pollen in the air. This causes itching and redness in the membranes of the eyelids. There may be swelling of the lids, redness, and a gritty or scratchy feeling in the eye. Home Care: Eye drops may be prescribed to reduce itching and redness. Use these as directed. Otherwise, Visine, Vasocon or other wfvk-qzb-paekedf decongestant eye drops may be used. Apply a cool compress (towel soaked in cool water) to the affected eye 3-4 times a day to reduce swelling and itching. It is common to have mucus drainage during the night causing the eyelids to become crusted by morning. Use a warm wet cloth to wipe this away. You may also use saline irrigating solution or artificial tears to rinse away mucus inside the eye. Do not patch the eye. You may use acetaminophen (Tylenol) or ibuprofen (Motrin, Advil) to control pain, unless another medicine was prescribed. [ NOTE: If you have chronic liver or kidney disease or ever had a stomach ulcer or GI bleeding, talk with your doctor before using these medicines.] Do not wear contact lenses until your eyes have healed and all symptoms are gone. Follow Up with your doctor or this facility as directed, or if there has not been improvement within five days. Get Prompt Medical Attention if any of the following occur: Increased swelling of the eyelid New or worsening drainage from the eye Increasing redness around the eye Facial swelling Chest Pain, Uncertain Cause Chest pain can happen for a number of reasons. Sometimes the cause can not be determined. If yourcondition does not seem serious, and your pain does not appear to be coming from your heart, your doctor may recommend watching it closely. Sometimes the signs of a serious problem take more time to appear. Therefore, watch for the warning signs listed below. Home care After your visit, follow these recommendations: Rest today and avoid strenuous activity. Take any prescribed medicine as directed. Follow-up care Follow up with your doctor or this facility as instructed or if you do not start to feel better within 24 hours. Call 911 Get immediate medical attention if any of the following occur: A change in the type of pain: if it feels different, becomes more severe, lasts longer, or begins to spread into your shoulder, arm, neck, jaw or back Shortness of breath or increased pain with breathing Weakness, dizziness, or fainting Rapid heart beat Get prompt medical attention Call your doctor right away if any of the following occur: Cough with dark colored sputum (phlegm) or blood Fever of 100.4F(38C) or higher, or as directed by your health care provider Swelling, pain or redness in one leg Chest Wall Pain: Costochondritis The chest pain that you have had today is caused by Costochondritis. This condition is due to an inflammation of the cartilage joining the ribs to the breastbone. It is not caused by heart or lung problems. Although the exact cause for costochondritis is not known, it often occurs during times of emotional stress. It can be painful, but it is not dangerous. It usually disappears within one to two weeks, but may recur. Rarely, a more serious condition may cause symptoms similar to costochondritis; therefore, watch for the warning signs listed below. Home Care: If you feel that emotional stress is a cause of your condition, try to identify sources of that stress. It may not be obvious! Learn ways to deal with the stress in your life such as regular exercise, muscle relaxation, meditation, or simply taking time out for yourself. For more information about this, consult your doctor or go to a local bookstore and review books and tapes available on the subject of stress reduction. You may use acetaminophen (Tylenol) or ibuprofen (Motrin, Advil) to control pain, unless another pain medicine was prescribed. [ NOTE: If you have liver disease or ever had a stomach ulcer, talk with your doctor before using these medicines.] The use of heat (hot wet compress or heating pad) with or without local analgesic creams (Deep Heat Rub, Toño [place]) will be helpful to reduce pain. Follow Up with your doctor as directed or sooner if you do not start to improve within the next two days. Get Prompt Medical Attention if any of the following occur: A change in the type of pain: if it feels different, becomes more severe, lasts longer, or spreads into your shoulder, arm, neck, jaw or back Shortness of breath or increased pain with breathing Weakness, dizziness, or fainting Cough with dark colored sputum (phlegm) or blood Abdominal pain Dark red or black stools Fever of 100.4F (38C) or higher, or as directed by your healthcare provider Chest Pain, Noncardiac Based on your visit today, the exact cause of your chest pain is not certain. Your condition does not seem serious and your pain does not appear to be coming from your heart. However, sometimes the signs of a serious problem take more time to appear. Therefore, please watch for the warning signs listed below. Home Care: Rest today and avoid strenuous activity. Take any prescribed medicine as directed. Follow Up with your doctor or this facility as instructed or if you do not start to feel better within 24 hours. Get Prompt Medical Attention if any of the following occur: A change in the type of pain: if it feels different, becomes more severe, lasts longer, or begins to spread into your shoulder, arm, neck, jaw or back Shortness of breath or increased pain with breathing Cough with dark colored sputum (phlegm) or blood Weakness, dizziness, or fainting Fever of 100.4F (38C) or higher, or as directed by your healthcare provider Swelling, pain or redness in one leg You have been given the following additional information: Conjunctivitis, Allergic Chest Pain, Uncertain Cause Chest Wall Pain, Costochondritis Chest Pain, Noncardiac (Electronically signed by Carla Ashby A.R.[place] 11/09/2016 17:11)
--- NOTE | 2016-11-09 19:13 | ED MED RECONCILIATION SUMMARY ---
Patient: HELEN CHAPPELL Medication Reconciliation Report [facility] VisitID: [id number] [address] [place] [address] 26y, F Registration Date/Time: 11/09/2016 Weight: 55.7 kg Height/Length: 62 in. BMI: 22.5 ALLERGIES: None The patient's Home Medications are listed below: THE FOLLOWING MEDICATIONS NEED TO BE RECONCILED: Fexofenadine HCl Oral The source(s) of the original Home Medication information: Not obtained. The following Medications were given to the patient in the Emergency Department: Proparacaine [Eye Drops] Eye Drops 2 drop, administered: 11/09/2016 3:10:00 PM The following Medications were prescribed to the patient: Patanol Ophthalmic Solution 0.1% : Instill 1-2 drops into affected eye 2 times daily 6 to 8 hours apart as needed for itching. Dispense five (5) mL. No refills. Substitution is permissible. -- Carla Ashby A.R.N.P.
--- NOTE | 2016-11-09 19:13 | ED MAR SUMMARY ---
..... Medication Administration Record [facility] [address] [place] [address] Patient: HELEN CHAPPELL Visit ID: [id number] 26y, F Weight: 55.7 kg Height/Length: 62 in BMI: 22.5 ALLERGIES: None Given 15:10 11/09/2016 Suzette Mckenzie RLewis Medication Administered: PROPARACAINE [EYE DROPS], Dose: 2 drop Eye Drops. Medication Ordered: Proparacaine Eye Drops (Solution 0.5 %) 2 drops (both eyes).
--- NOTE | 2016-11-09 19:13 | ED MED RECONCILIATION SUMMARY ---
Patient: HELEN CHAPPELL Medication Reconciliation Report [facility] VisitID: [id number] [address] [place] [address] 26y, F Registration Date/Time: 11/09/2016 Weight: 55.7 kg Height/Length: 62 in. BMI: 22.5 ALLERGIES: None The patient's Home Medications are listed below: THE FOLLOWING MEDICATIONS NEED TO BE RECONCILED: Fexofenadine HCl Oral The source(s) of the original Home Medication information: Not obtained. The following Medications were given to the patient in the Emergency Department: Proparacaine [Eye Drops] Eye Drops 2 drop, administered: 11/09/2016 3:10:00 PM The following Medications were prescribed to the patient: Patanol Ophthalmic Solution 0.1% : Instill 1-2 drops into affected eye 2 times daily 6 to 8 hours apart as needed for itching. Dispense five (5) mL. No refills. Substitution is permissible. -- Carla Ashby A.R.N.P.
--- NOTE | 2016-11-09 19:13 | ED DISCHARGE INSTRUCTIONS ---
Patient: HELEN CHAPPELL General Instructions [facility] VisitID: [id number] [place] [address] 26y, F Registration Date/Time: 11/09/2016 Acute conjunctivitis of the right eye and left eye. Chest pain characterized as "discomfort" .12 lead EKG performed. INSTRUCTIONS Warnings: GENERAL WARNINGS: Return or contact your physician immediately if your condition worsens or changes unexpectedly, if not improving as expected, or if other problems arise. Specifically return if problem worsens. Prescription Medications: Patanol Ophthalmic Solution 0.1% : Instill 1-2 drops into affected eye 2 times daily 6 to 8 hours apart as needed for itching. Dispense five (5) mL. No refills. Substitution is permissible. Understanding of the discharge instructions verbalized by patient. Follow-up with: Nisa Wisdom MD, Ophthalmology, [facility], [address] [place] [address] - [address], [place] [address]; Bogdan Rowland MD, Ophthalmology, , [place] [address]; Tani Shanks MD, Ophthalmology, , [address], [place] [address]; Bogdan Gonzalez MD, Ophthalmology, , [address], [place] [address]; Mik Omer MD, Ophthalmology, , [address] [address]; Julien Jennings MD, Ophthalmology, , [address], [place] [address]; Linsey King MD, Ophthalmology, , [address], [place] [address]; Bogdan Gusman MD, Ophthalmology, , [facility] [place] [address] Follow up tomorrow even if well. Call for an appointment. Summary of care provided to patient. ADDITIONAL INFORMATION Conjunctivitis, Allergic Allergic Conjunctivitis is a reaction to dust or pollen in the air. This causes itching and redness in the membranes of the eyelids. There may be swelling of the lids, redness, and a gritty or scratchy feeling in the eye. Home Care: Eye drops may be prescribed to reduce itching and redness. Use these as directed. Otherwise, Visine, Vasocon or other [id number] decongestant eye drops may be used. Apply a cool compress (towel soaked in cool water) to the affected eye 3-4 times a day to reduce swelling and itching. It is common to have mucus drainage during the night causing the eyelids to become crusted by morning. Use a warm wet cloth to wipe this away. You may also use saline irrigating solution or artificial tears to rinse away mucus inside the eye. Do not patch the eye. You may use acetaminophen (Tylenol) or ibuprofen (Motrin, Advil) to control pain, unless another medicine was prescribed. [ NOTE: If you have chronic liver or kidney disease or ever had a stomach ulcer or GI bleeding, talk with your doctor before using these medicines.] Do not wear contact lenses until your eyes have healed and all symptoms are gone. Follow Up with your doctor or this facility as directed, or if there has not been improvement within five days. Get Prompt Medical Attention if any of the following occur: Increased swelling of the eyelid New or worsening drainage from the eye Increasing redness around the eye Facial swelling Chest Pain, Uncertain Cause Chest pain can happen for a number of reasons. Sometimes the cause can not be determined. If yourcondition does not seem serious, and your pain does not appear to be coming from your heart, your doctor may recommend watching it closely. Sometimes the signs of a serious problem take more time to appear. Therefore, watch for the warning signs listed below. Home care After your visit, follow these recommendations: Rest today and avoid strenuous activity. Take any prescribed medicine as directed. Follow-up care Follow up with your doctor or this facility as instructed or if you do not start to feel better within 24 hours. Call 911 Get immediate medical attention if any of the following occur: A change in the type of pain: if it feels different, becomes more severe, lasts longer, or begins to spread into your shoulder, arm, neck, jaw or back Shortness of breath or increased pain with breathing Weakness, dizziness, or fainting Rapid heart beat Get prompt medical attention Call your doctor right away if any of the following occur: Cough with dark colored sputum (phlegm) or blood Fever of 100.4F(38C) or higher, or as directed by your health care provider Swelling, pain or redness in one leg Chest Wall Pain: Costochondritis The chest pain that you have had today is caused by Costochondritis. This condition is due to an inflammation of the cartilage joining the ribs to the breastbone. It is not caused by heart or lung problems. Although the exact cause for costochondritis is not known, it often occurs during times of emotional stress. It can be painful, but it is not dangerous. It usually disappears within one to two weeks, but may recur. Rarely, a more serious condition may cause symptoms similar to costochondritis; therefore, watch for the warning signs listed below. Home Care: If you feel that emotional stress is a cause of your condition, try to identify sources of that stress. It may not be obvious! Learn ways to deal with the stress in your life such as regular exercise, muscle relaxation, meditation, or simply taking time out for yourself. For more information about this, consult your doctor or go to a local bookstore and review books and tapes available on the subject of stress reduction. You may use acetaminophen (Tylenol) or ibuprofen (Motrin, Advil) to control pain, unless another pain medicine was prescribed. [ NOTE: If you have liver disease or ever had a stomach ulcer, talk with your doctor before using these medicines.] The use of heat (hot wet compress or heating pad) with or without local analgesic creams (Deep Heat Rub, [place]) will be helpful to reduce pain. Follow Up with your doctor as directed or sooner if you do not start to improve within the next two days. Get Prompt Medical Attention if any of the following occur: A change in the type of pain: if it feels different, becomes more severe, lasts longer, or spreads into your shoulder, arm, neck, jaw or back Shortness of breath or increased pain with breathing Weakness, dizziness, or fainting Cough with dark colored sputum (phlegm) or blood Abdominal pain Dark red or black stools Fever of 100.4F (38C) or higher, or as directed by your healthcare provider Chest Pain, Noncardiac Based on your visit today, the exact cause of your chest pain is not certain. Your condition does not seem serious and your pain does not appear to be coming from your heart. However, sometimes the signs of a serious problem take more time to appear. Therefore, please watch for the warning signs listed below. Home Care: Rest today and avoid strenuous activity. Take any prescribed medicine as directed. Follow Up with your doctor or this facility as instructed or if you do not start to feel better within 24 hours. Get Prompt Medical Attention if any of the following occur: A change in the type of pain: if it feels different, becomes more severe, lasts longer, or begins to spread into your shoulder, arm, neck, jaw or back Shortness of breath or increased pain with breathing Cough with dark colored sputum (phlegm) or blood Weakness, dizziness, or fainting Fever of 100.4F (38C) or higher, or as directed by your healthcare provider Swelling, pain or redness in one leg You have been given the following additional information: Conjunctivitis, Allergic Chest Pain, Uncertain Cause Chest Wall Pain, Costochondritis Chest Pain, Noncardiac (Electronically signed by Carla Ashby [employer] 11/09/2016 17:11)
--- NOTE | 2016-11-09 19:13 | ED MAR SUMMARY ---
..... Medication Administration Record [facility] [address] [place] [address] Patient: HELEN CHAPPELL Visit ID: [id number] 26y, F Weight: 55.7 kg Height/Length: 62 in BMI: 22.5 ALLERGIES: None Given 15:10 11/09/2016 Suzette Mckenzie RLewis Medication Administered: PROPARACAINE [EYE DROPS], Dose: 2 drop Eye Drops. Medication Ordered: Proparacaine Eye Drops (Solution 0.5 %) 2 drops (both eyes).
== END 2016-11-09 15:30 | disposition home or self-care (01) ==
LOC: ED SRH 13:34
DX: H10.33 Unspecified acute conjunctivitis, bilateral (principal); R07.9 Chest pain, unspecified